=== PATIENT | male | born 1955 | race Caucasian/White ===

== ENCOUNTER 2021-07-30 10:48 | Emergency (ER) | payer MEDICARE, SELFPAY ==
[2021-07-30 10:49] VITALS: BP 161/74; PULSE 85; RESP 18; TEMP 36; O2SAT 97; BMI 27.1
[2021-07-30 10:53] VITALS: BP 161/74; PULSE 85; RESP 18; TEMP 36; O2SAT 97
--- NOTE | 2021-07-30 11:01 | EDS_ITS ---
HPI History of Present Illness Chief Complaint: General Illness Informant: patient Onset/Context/Timing Onset: Days (4 days) Context: Gradual Onset Current Severity: Moderate Maximum Severity: Moderate Narrative Narrative: Patient presents with nausea, vomiting, diarrhea that started 3 days ago. Patient states that he has a mild dry cough and this morning felt short of breath. He had subjective fever at home but did not measure it. He denies any known exposure to COVID. He is unvaccinated. He presented today because he feels that he is getting dehydrated. [facility] Medical History (Updated 07/30/21 @ 13:[address] Asia Lopez MD) HTN (hypertension) Leaky heart valve Home Medications ondansetron 4 mg PO Q8H PRN #10 tab 07/30/21 [Rx Last Taken Unknown] Allergy/AdvReac Type Severity Reaction Status Date / Time No Known Allergies Allergy Verified 07/30/21 10:50 Social History Smoking Status: Former smoker ROS ROS ED Constitutional Constitutional ED: Reports fever(s) and subjective; Denies chills Eyes Eyes: Denies change in vision ENT ENT ED: Denies sore throat Cardiovascular Cardiovascular: Denies chest pain Respiratory/Chest Respiratory/Chest: Reports cough and dyspnea; Denies sputum Gastrointestinal Gastrointestinal: Reports abdominal pain, diarrhea, nausea and vomiting Genitourinary Genitourinary ED: Denies dysuria Musculoskeletal Musculoskeletal: Denies back pain Integumentary Denies rash Neurologic Neurologic: Denies headache(s) or weakness Psychiatric Psychiatric: Denies anxiety or depression Allergic/Immunologic Allergic/Immunologic ED: Denies urticaria EXAM Physical Exam Const Vital Signs: 07/30/21 10:49 07/30/21 10:53 07/30/21 11:43 Temperature 96.8 F L 96.8 F L Temperature Source Temporal Temporal Pulse Rate 85 85 Respiratory Rate 18 18 Respiratory Effort Short of Breath Blood Pressure 161/74 H 161/74 H Blood Pressure Mean 103 103 Pulse Ox 97 97 Oxygen Delivery Method Room Air Room Air Positive well nourished and well developed General Appearance ED: well developed HEENT Reports dry mucous membranes Mouth ED: Yes dry mucous membranes Mouth: dry mucous membranes Eyes PERRL and EOMs intact bilaterally Neck supple Chest Wall inspection of chest normal and palpation of chest normal Resp normal respiratory effort and clear to auscultation bilaterally Cardio regular rate and regular rhythm GI non-tender Auscultation: hypoactive bowel sounds Palpation: soft Extremity normal to inspection Neuro oriented x3 Sensorium / Orientation: alert Psych mental status grossly normal Skin no rashes or lesions noted MDM MDM MDM Narrative Medical decision making narrative: Patient given 500 cc IV fluid bolus along with Zofran. Lab work, chest x-ray, COVID test obtained. Lab Data Attestation: I reviewed the patient's lab results. Labs: Laboratory Results - last 24 hr 07/30/21 07/30/21 11:13 11:13 WBC 7.0 RBC 5.40 Hgb 15.8 Hct 47.7 MCV 88.3 MCH 29.3 MCHC 33.1 RDW Std Deviation 42.0 RDW Coeff of Grace 13.0 Plt Count 145 L MPV 10.6 Immature Gran % (Auto) 0.400 Neut % (Auto) 73.6 H Lymph % (Auto) 16.3 L [place] % (Auto) 9.5 Eos % (Auto) 0.1 Baso % (Auto) 0.1 Absolute Neuts (auto) 5.1 Absolute Lymphs (auto) 1.14 Nucleated RBC % 0 Sodium 136 Potassium 3.9 Chloride 103 Carbon Dioxide 25.0 Anion Gap 8 BUN 20 H Creatinine 1.19 Estim Creat Clear Calc 49.75 Est GFR (MDRD) Af Amer 78 Est GFR (MDRD) Non-Af 65 BUN/Creatinine Ratio 16.8 Glucose 95 Calcium 8.8 Rapid COVID: Positive Radiography Chest X-Ray - ED: 1 View, Read by ED Physician and Chronic Changes Diagnostic Testing: Clinical Impression(s) from Imaging Studies Chest X-Ray 07/30/21 11:15 IMPRESSION: Hyperinflation. The lungs are clear. Electronically Signed: Migel Miguel MD at 11:30 EST , Service support , Treatment and Re-Evaluation Comments:: On repeat evaluation patient resting comfortably. He is able to tolerate ice water after the Zofran. Patient was ambulated and was not hypoxic. We did discuss monoclonal antibody treatment. He is interested in this. Order will be placed. Patient is given return instructions along with handouts on COVID and monoclonal antibody treatment. Symptom onset occurred: 07/27/2021 Positive COVID-19 test occurred: 07/30/2021 The FDA has authorized the emergency use of monoclonal antibody treatment (bamlanivimab/etesevimab or casirivimab/imdevimab) for mild to moderate COVID-19 in adults and pediatric patients with positive results of direct SARS?Cov?2 viral testing ages 12 and older, at least 40 kg, who are at high risk for progressing to severe COVID-19 and or hospitalization. The significant known and potential risks (allergic reactions, worsening of symptoms after treatment, or side effects from injection including brief pain, bleeding, bruising of the skin, soreness, swelling, possible infection at the infusion site) and benefits (decrease chance of progression to severe COVID-19) of a monoclonal antibody infusion, and the extent to which such potential risks and benefits are unknown. Note that worsening symptoms after treatment may occur but it is unknown whether these symptoms are related to treatment or are due to the progression of COVID-19. Worsening symptoms may include: fever, difficulty breathing, rapid or slow heart rate, tiredness, weakness or confusion. If these symptoms occur, patients are encouraged to seek immediate medical attention. These treatments are still being studied, all possible side effects may not be listed or known at this time. Patients treated with monoclonal antibody infusion should continue to self- isolate and use infection control measures (such as wear mask, isolate, social distance, avoid sharing personal items, clean and disinfect high touch surfaces, and frequent handwashing) according to the CDC guidelines. The fact sheet for patients, parents and caregivers will be provided prior to the administration of the medication. No drugs are approved by the FDA at this time to treat outpatients with mild or moderate symptoms of COVID-19. In addition to IV monoclonal antibodies, there are oral medications that have received authorization from the FDA to treat [id number] COVID-19 in patients at high risk for progression to severe COVID-19. These medications may not be appropriate for all patients and available drug supply may be limited. However, these oral medications may be more effective against the omicron variant. The following information was communicated to the patient or caregiver: Monoclonal antibody infusion for COVID-19 is not an FDA approved drug. The FDA has authorized the emergency use of monoclonal antibody therapy. The patient had the option to refuse or accept treatment with monoclonal antibody therapy. The patient was informed that the number of people treated with monoclonal antibody therapy at this time is small. The potential benefits and the potential risks of monoclonal antibody therapy are not fully known. Potential benefits of monoclonal antibody include a reduced risk of progressing to severe COVID-19 infection. Potential risks or side effects of monoclonal antibody therapy include allergic reactions, side effects from injection including brief pain, bleeding, bruising of the skin, soreness, swelling, possible infection at the infusion site and worsening of symptoms. Due to the changes in the virus that causes COVID-19, some monoclonal antibody treatments may not be effective for all forms of the virus (known as variants). This includes the omicron variant. The patient stated understanding of this information communicated and wished to proceed with monoclonal antibody infusion therapy. Current symptoms include: Shortness of breath, cough (productive versus nonproductive), fever, headache, nausea/vomiting, body aches, chills, general malaise, loss of taste or smell, sneezing, nasal congestion. Discharge Plan Triage Chief Complaint: General Illness ED Provider: Asia Lopez Dx/Rx/DC Orders Clinical Impression: COVID-19 Instructions: Coronavirus Disease 2019 (COVID-19): Overview, Coronavirus Disease 2019 (COVID-19): Caring for Yourself or Others Prescriptions: New ondansetron 4 mg tablet,disintegrating 4 mg PO Q8H PRN (Reason: nausea and vomiting) Qty: 10 RF: 0 Stand Alone Forms: Monoclonal Antibody Referral Primary Care Provider: Erinn Bernal Referrals: Erinn Bernal DO [Primary Care Provider] - 1-2 Weeks Disposition Disposition: Home, Self Care
[2021-07-30] MEDS: Ondansetron 4 MG/2 ML Vial IV (11:15)
--- NOTE | 2021-07-30 11:15 | RAD_ITS ---
STUDY: X-RAY CHEST REASON FOR EXAM: Male, 66 years old. Cough and diarrhea. TECHNIQUE: Single AP portable view of the chest. COMPARISON: None. FINDINGS: EKG electrodes are seen. There is hyperinflation of the lungs consistent with chronic obstructive lung disease (COPD). There is no demonstrated pleural abnormality. Normal size heart. Normal mediastinum and kathryn. Normal visualized pulmonary arteries. Normal visualized aortic arch and descending thoracic aorta. Normal visualized thoracic spine. Normal visualized ribs, clavicles, and shoulders. There is no demonstrated abnormality of the visualized soft tissue structures of the upper abdomen. RAD/Chest 1 View (Portable) IMPRESSION: Hyperinflation. The lungs are clear. Electronically Signed: Migel Miguel MD at 11:30 EST , Service support ,
[2021-07-30 11:23] LABS: Absolute Lymphocyte Count 1.14 X10^3/uL (0.83-4.51); Absolute Neutrophil Count 5.1 X10^3/uL (2.0-7.7); Basophil# 0.01 X10^3/uL; Basophil% 0.1 % (0-1); Eosinophil# 0.01 X10^3/uL; Eosinophils% 0.1 % (0-5); Hematocrit 47.7 % (40-54); Hemoglobin 15.8 g/dL (13.0-16.5); Lymphocyte # 1.14 X10^3/ul (0.83-4.51); Lymphocyte % 16.3 % (19-41); Mean Corp Hgb Conc 33.1 g/dL (32-36); Mean Corpuscular Hgb 29.3 pg (27.0-32.0); Mean Corpuscular Volume 88.3 fL (80-94); Mean Platelet Vol. 10.6 fl (6.2-12.0); Monocyte# 0.66 X10^3/uL; Monocyte% 9.5 % (0-10); NRBC Flagged by Analyzer 0 % (0-5); Neutrophil # 5.13 X10^3/uL (2.7-7.7); Neutrophil % 73.6 % (47-70); Platelet Count 145 K/mm3 (150-450)
[2021-07-30 11:35] LABS: Anion Gap 8 (5-15); BUN 20 mg/dL (7-18); BUN/Creat Ratio 16.8 RATIO (10-20); Calcium,Total 8.8 mg/dL (8.5-10.1); Chloride 103 mmol/L (98-107); Creatinine, Serum 1.19 mg/dL (0.70-1.30); EST Glomerular Filtration Rate 65 mL/min (>60); Est Glom Filt Rate - Afr Amer 78 mL/min (>60); Estimated Creatinine Clearance 49.75 ml/min; Glucose 95 mg/dL (74-106); Potassium 3.9 mmol/L (3.5-5.1); Sodium Level 136 mmol/L (136-145)
[2021-07-30 12:28] VITALS: O2SAT 93
[2021-07-30 13:10] VITALS: BP 125/72; PULSE 71; RESP 18; O2SAT 92
== END 2021-07-30 13:11 | disposition home or self-care (01) ==
PROVIDERS: Emergency Provider Emergency Medicine; PCP Family Medicine; Visit Provider Emergency Medicine
DX: U07.1 COVID-19 (principal); Z87.891 Personal history of nicotine dependence
CPT/HCPCS: 71045; 80048; 85025; 87426; 96361; 96374; 99283; J2405

== ENCOUNTER 2021-08-02 15:35 | Outpatient (CLI) | payer MEDICARE, SELFPAY ==
[2021-08-02 15:46] VITALS: BP 111/62; PULSE 77; RESP 16; TEMP 37.2; O2SAT 97; BMI 59.8
[2021-08-02] MEDS: 0.9% Saline Lock 10 ML Syringe IV (15:47)
[2021-08-02 16:16] VITALS: BP 121/64; PULSE 70; RESP 16; TEMP 37.7; O2SAT 96
[2021-08-02 17:11] VITALS: BP 131/61; PULSE 67; RESP 16; TEMP 37.7; O2SAT 96
== END 2021-08-02 23:59 | disposition home or self-care (01) ==
LOC: MS3OUT 15:42 → MS3 15:42
PROVIDERS: PCP Family Medicine; Referring Provider Emergency Medicine; Visit Provider Emergency Medicine
DX: Z23 Encounter for immunization (principal); U07.1 COVID-19
CPT/HCPCS: J7050; M0245; Q0245; A4216